=== PATIENT | female | born 1980 | race Caucasian/White ===

== ENCOUNTER → 2020-02-22 | Outpatient (CLI) | payer BC ==
--- NOTE | 2020-02-22 09:47 | Diagnostic Imaging Report ---
TECHNIQUE: Magnetic resonance imaging of the RIGHT KNEE was performed WITHOUT injected contrast. HISTORY: Knee pain, right medial meniscus tear COMPARISON: None available. FINDINGS: LIGAMENTS AND TENDONS: ACL: Intact PCL: Intact Collateral ligaments: Intact Iliotibial band: Unremarkable Popliteal tendon: Intact Extensor mechanism: Intact. Mild patellar tendinosis at the tibial insertion. JOINT: Menisci: Medial: Intact Lateral: Intact Articular Cartilage: Medial Compartment: No focal defect. Lateral Compartment: No focal defect. Patellofemoral Compartment: Mild lateral patellar subluxation with low-grade cartilage thinning along the lateral patellar facet. Joint Fluid: The amount of fluid within the joint is within physiologic limits. BONE: No fracture or acute osseous abnormality. Diffuse red marrow signal changes within the femoral and tibial diaphysis/metaphysis. SOFT TISSUES: Nonspecific mild anterior subcutaneous edema. IMPRESSION: No acute ligament or meniscus injury. Mild patellar tendinosis at the tibial insertion. Mild lateral patellar subluxation with low-grade cartilage loss along the lateral patellar facet. Signed by: Dr. Jesus Hilton M.D. on 02/22/2020 9:44 AM
== END ==
LOC: MRI 08:26
PROVIDERS: ATTEND Specialist
DX: S83.241A Other tear of medial meniscus, current injury, right knee, initial encounter (principal)

== ENCOUNTER → 2021-03-29 | Outpatient (CLI) | payer BC ==
[~2021-03-29] MED LIST: IOPAMIDOL 370 MG/ML 200 ML INFUS..BTL INJ ONE; SODIUM CHLORIDE 0.9% 50ML 50 ML ONE
== END ==
LOC: CT 16:21
PROVIDERS: ATTEND Internal Medicine Interventional Cardiology
DX: R07.9 Chest pain, unspecified (principal); I26.99 Other pulmonary embolism without acute cor pulmonale
CPT/HCPCS: 71260; Q9967

== ENCOUNTER 2023-06-22 09:55 | Outpatient (RCR) | payer BC | END 2023-07-21 | LOC: ST 09:55 | PROVIDERS: ATTEND Psychiatry & Neurology Clinical Neurophysiology | DX: R47.9 Unspecified speech disturbances (principal) ==